=== PATIENT | female | born 1980 | race African-American/Black ===

== ENCOUNTER 2017-01-11 01:18 | Inpatient (IN) | payer OTHER ==
[~2017-01-11] VITALS: Ht 182.9 cm; Wt 150.7 kg
[~2017-01-11 01:18] MED LIST: ALBUTEROL SULF8.5 GM IH; Aspirin E.C. PO; BACTRIM,SEPT1 TABLET PO; COZAAR50 MG PO; DILAUDID4 MG PO; DOXEPIN HCL150 MG PO; FLINTSTONES1 TABLET PO; HYDROCHLOROTH12.5 M3 PO; HYDROCHLOROTHIA25 MG PO; IMITREX100 MG PO; KLONOPIN0.5 M1 PO; KLONOPIN2 MG PO; LAMICTAL150 M1 PO; LEXAPRO10 MG PO; LEXAPRO20 MG PO; LaMICtal PO; MOBIC15 MG PO; Motrin PO; NEURONTIN600 MG PO; PHENTERMINE HCL30 MG PO; Pepcid PO; QUETIAPINE FUM100 MG PO; SEROQUEL100 MG PO; SINEQUAN100 MG PO; SINEQUAN25 MG PO; Vitamin D PO; XANAX0.5 MG PO; ZOMIG5 MG PO; Zantac PO
[2017-01-11 02:06] LABS: HEMATOCRIT 38.5 % (36.0-46.0); MCH 27.9 PG (29.0-34.0); MCHC 31.4 G/DL (30.0-36.0); MCV 88.9 FL (83-99); MEAN PLAT.VOLUME 11.1 uM^3 (9.5-12.4); PLATELET COUNT 216 K/uL (156-360); RBC DIS.WIDTH-CV 14.1 % (11.8-14.6); RBC DIS.WIDTH-SD 44.2 % (39-53); RED BLOOD COUNT 4.33 M/uL (3.80-5.20); WHITE BLOOD COUNT 8.7 K/uL (4.1-10.2)
[2017-01-11 02:19] LABS: CHLORIDE 112 mEq/L (99-109); POTASSIUM 4.7 mEq/L (3.7-5.4); SODIUM 143 mEq/L (136-147)
[2017-01-11 02:21] LABS: GLUCOSE 83 mg/dL (70-99)
[2017-01-11 02:23] LABS: ANION GAP 11 MEQ/L (2-14)
[2017-01-11 02:24] LABS: SERUM ETHYL ALCOHOL < 10 mg/dL
[2017-01-11 02:25] LABS: GFR ESTIMATE (CALCULATED) > 59 mL/min/
[2017-01-11 02:27] LABS: UREA NITROGEN (BUN) 14 mg/dL (9-23)
[2017-01-11 02:28] LABS: SALICYLATE < 5.0 MG/DL (15-30)
[2017-01-11 02:43] LABS: QUANTITATIVE HCG < 4.0 MIU/ML
[2017-01-11] MEDS ORDERED: PROAIR HFA8.5 GM IH (09:16)
[2017-01-11] MEDS ORDERED: TOPAMAX100 MG PO (09:59)
[2017-01-11] MEDS ORDERED: TOPAMAX50 MG PO (10:00)
[2017-01-11 11:59] LABS: AMPHETAMINE NEGATIVE (500 ng/mL); BARBITURATES PRESUMPTIVE POSITIVE (200 ng/mL); BENZODIAZEPINES PRESUMPTIVE POSITIVE (150 ng/mL); COCAINE NEGATIVE (150 ng/mL); INTERNAL CONTROLS VALID? YES; METHADONE NEGATIVE (200 ng/mL); METHAMPHETAMINE NEGATIVE (500 ng/mL); OPIATES (MORPHINE) NEGATIVE (100 ng/mL); OXYCODONE NEGATIVE (100 ng/mL); PHENCYCLIDINE NEGATIVE (25 ng/mL); PROPOXYPHENE NEGATIVE (300 ng/mL); THC CANNABINOIDS NEGATIVE (50 ng/mL); TRICYCLIC ANTIDEPRESSANTS NEGATIVE (300 ng/mL)
[2017-01-11 12:00] LABS: ADD MEDTOX COMMENT Y
[2017-01-11 12:48] LABS: BENZODIAZEPINES, URINE SCREEN POSITIVE (200 ng/mL)
[2017-01-11 13:40] VITALS: BP 131/65
[2017-01-11 13:55] VITALS: BP 131/65
[2017-01-11 15:35] VITALS: BP 109/54
[2017-01-12 07:59] VITALS: BP 125/79
[2017-01-12 15:36] VITALS: BP 133/98
[2017-01-13 09:33] VITALS: BP 120/61
[2017-01-13 15:23] VITALS: BP 118/65
[2017-01-14 07:42] VITALS: BP 85/50
[2017-01-14 08:45] VITALS: BP 105/77
[2017-01-14 15:32] VITALS: BP 105/56
[2017-01-15 08:15] VITALS: BP 106/64
[2017-01-15 15:11] VITALS: BP 110/85
[2017-01-16 07:47] VITALS: BP 102/61
[2017-01-16 15:51] VITALS: BP 123/62
[2017-01-17 08:12] VITALS: BP 102/65
[2017-01-17 15:16] VITALS: BP 125/82
[2017-01-18 07:48] VITALS: BP 119/59
[2017-01-18 15:19] VITALS: BP 143/84
[2017-01-19 07:56] VITALS: BP 112/58
[2017-01-19] MEDS ORDERED: ARIPIPRAZOLE10 MG PO (09:34)
== END 2017-01-19 10:21 | disposition home or self-care (01) | DRG 885 ==
LOC: EME 01:18 → 1WEST 12:16 → EDOF 12:16 → 1WEST 15:26
PROVIDERS: Emergency Medicine
DX: F33.2 Major depressive disorder, recurrent severe without psychotic features (principal); Z68.43 Body mass index [BMI] 50.0-59.9, adult; F60.89 Other specific personality disorders; G40.909 Epilepsy, unspecified, not intractable, without status epilepticus; T42.4X2A Poisoning by benzodiazepines, intentional self-harm, initial encounter; E66.01 Morbid (severe) obesity due to excess calories; F43.10 Post-traumatic stress disorder, unspecified; F40.00 Agoraphobia, unspecified; I10 Essential (primary) hypertension; F12.10 Cannabis abuse, uncomplicated
CPT/HCPCS: 71010; 80048; 84702; 84999; 85027; 90839; 93005; 94640; 97150 GO; 97166 GO; 99281; 99285; G0480; J7030; Q0177

== ENCOUNTER 2017-07-06 21:48 | Emergency (ER) | payer OTHER ==
[~2017-07-06] VITALS: Ht 170.2 cm; Wt 163.4 kg
[~2017-07-06 21:48] MED LIST changes: +ARIPIPRAZOLE10 MG PO; +PROAIR HFA8.5 GM IH; +TOPAMAX100 MG PO; +TOPAMAX50 MG PO
[2017-07-06 22:09] LABS: HEMATOCRIT 38.3 % (36.0-46.0); MCH 27.8 PG (29.0-34.0); MCHC 31.9 G/DL (30.0-36.0); MCV 87.2 FL (83-99); MEAN PLAT.VOLUME 10.2 uM^3 (9.5-12.4); PLATELET COUNT 245 K/uL (156-360); RBC DIS.WIDTH-CV 13.3 % (11.8-14.6); RBC DIS.WIDTH-SD 42.7 % (39-53); RED BLOOD COUNT 4.39 M/uL (3.80-5.20)
[2017-07-06 22:49] LABS: CHLORIDE 112 mEq/L (99-109); POTASSIUM 3.8 mEq/L (3.7-5.4); SODIUM 139 mEq/L (136-147)
[2017-07-06 22:52] LABS: GLUCOSE 86 mg/dL (70-99)
[2017-07-06 22:53] LABS: ANION GAP 9 MEQ/L (2-14)
[2017-07-06 22:54] LABS: TOTAL BILIRUBIN 0.4 mg/dL (0.0-1.0)
[2017-07-06 22:55] LABS: ALKALINE PHOSPHATASE 88 IU/L (3-129); GFR ESTIMATE (CALCULATED) > 59 mL/min/
[2017-07-06 22:56] LABS: UREA NITROGEN (BUN) 13 mg/dL (9-23)
[2017-07-06 23:22] LABS: ADD MIUA? YES; BILIRUBIN NEGATIVE; BLOOD SMALL; COLOR YELLOW ((YELLOW)); GLUCOSE (STRIP) NEGATIVE; KETONES NEGATIVE; LEUKOCYTES NEGATIVE; NITRITE NEGATIVE; PROTEIN (STRIP) 30; SPECIFIC GRAVITY 1.021 (1.000-1.030)
[2017-07-06 23:26] LABS: BACTERIA RARE /HPF; EPITHELIAL CELLS 1+ /HPF; MUCUS 2+ /LPF; RED BLOOD CELLS 0-5 /HPF (0-5); UCUL ADDED? NO; WHITE BLOOD CELLS 0-5 /HPF (0-5)
[2017-07-06 23:35] LABS: QUANTITATIVE HCG < 4.0 MIU/ML
[2017-07-07] MEDS ORDERED: TORADOL10 MG PO (00:47)
[2017-07-07 01:12] VITALS: BP 154/94
== END 2017-07-07 01:15 | disposition home or self-care (01) ==
LOC: EME 21:48
DX: N83.209 Unspecified ovarian cyst, unspecified side (principal); I10 Essential (primary) hypertension; J45.909 Unspecified asthma, uncomplicated; R56.9 Unspecified convulsions; Z86.73 Personal history of transient ischemic attack (TIA), and cerebral infarction without residual deficits; Z87.891 Personal history of nicotine dependence
CPT/HCPCS: 76856; 80053; 81003; 84702; 85027; 99281; 99284; J1885; J2405; J3010

== ENCOUNTER 2018-04-28 07:41 | Day surgery (SDC) | payer OTHER ==
[~2018-04-28] VITALS: Ht 170.2 cm; Wt 172.4 kg
[~2018-04-28 07:41] MED LIST changes: +INDERAL10 MG PO; +LATUDA60 MG PO; +LUNESTA3 MG PO; +TORADOL10 MG PO
[2018-04-28 08:28] VITALS: BP 130/70
[2018-04-28] MEDS ORDERED: ENDOCET 5-3251 EACH PO (09:13)
[2018-04-28] MEDS ORDERED: IBUPROFEN800 MG PO (09:13)
[2018-04-28 12:31] VITALS: BP 111/65
[2018-04-28 13:20] VITALS: BP 109/69
[2018-04-28 15:18] VITALS: BP 124/74
== END 2018-04-28 15:30 | disposition home or self-care (01) ==
LOC: SDC 07:41
DX: N83.292 Other ovarian cyst, left side (principal); N83.291 Other ovarian cyst, right side; K66.0 Peritoneal adhesions (postprocedural) (postinfection); R10.2 Pelvic and perineal pain; G40.909 Epilepsy, unspecified, not intractable, without status epilepticus; F32.9 Major depressive disorder, single episode, unspecified; Z88.6 Allergy status to analgesic agent; Z88.8 Allergy status to other drugs, medicaments and biological substances; Z91.040 Latex allergy status; Z68.43 Body mass index [BMI] 50.0-59.9, adult
CPT/HCPCS: 86850; 86900; 86901; 93005; J0330; J1170; J1885; J2250; J2405; J2710; J3010; J7643